=== PATIENT | male | born 1950 | race Two or more races ===

== ENCOUNTER 2018-10-06 08:35 | Outpatient (CLI) | payer OTHER | END 2018-10-06 08:46 | disposition home or self-care (01) | LOC: NUCLEAR 08:35 | DX: C61 Malignant neoplasm of prostate (principal) | CPT/HCPCS: 78306; A9503 ==

== ENCOUNTER 2022-11-05 11:29 | Outpatient (CLI) | payer OTHER | END 2022-11-05 11:39 | disposition home or self-care (01) | LOC: RAD 11:29 | PROVIDERS: ATTEND General Practice | DX: R06.02 Shortness of breath (principal); C61 Malignant neoplasm of prostate; R42 Dizziness and giddiness; Z76.0 Encounter for issue of repeat prescription; Z12.5 Encounter for screening for malignant neoplasm of prostate; Z12.11 Encounter for screening for malignant neoplasm of colon; Z13.1 Encounter for screening for diabetes mellitus; Z13.220 Encounter for screening for lipoid disorders; Z13.228 Encounter for screening for other metabolic disorders ==